=== PATIENT | female | born 1950 | race Caucasian/White ===

== ENCOUNTER 2021-07-01 04:27 | Day surgery (SDC) | payer OTHER ==
[2021-06-01 16:14] VITALS: BMI 27.8
[2021-07-01] MEDS ORDERED: MIDAZOLAM HCL 2 MG/2 ML SINGLE DOSE VIAL ONE (15:45)
[2021-07-01] MEDS ORDERED: ROCURONIUM BROMIDE 50 MG/5 ML SYRINGE ONE (15:45)
[2021-07-01] MEDS ORDERED: PROPOFOL 20 ML ONE (15:45)
[2021-07-01] MEDS ORDERED: fentaNYL CITRATE 250 MCG/5 ML VIAL ONE (15:45)
[2021-07-01] MEDS ORDERED: ACETAMINOPHEN 325 MG TABLET (FP) PO PRN (17:39)
[2021-07-01] MEDS ORDERED: oxyCODONE HCL 5 MG TABLET PO PRN ×2 (17:39→17:42)
[2021-07-01] MEDS ORDERED: IBUPROFEN 400 MG TABLET (FP) PO PRN (17:39)
[2021-07-01] MEDS ORDERED: ONDANSETRON 4 MG/2 ML VIAL IVPUSH PRN (17:42)
[2021-07-01] MEDS ORDERED: LACTATED RINGERS SOLUTION 1,000 ML IV SCH ×2 (17:45)
[2021-07-01] MEDS ORDERED: oxyCODONE HCL 5 MG TABLET ONE (18:42)
[2021-07-01] MEDS ORDERED: ACETAMINOPHEN INJECTION 100 ML IVPB ONE (18:42)
[2021-07-01] MEDS ORDERED: ACETAMINOPHEN 1000 MG/100 ML VIAL (NON FORMULARY) IVPB ONE (18:46)
[2021-07-01 19:57] VITALS: BP 148/87; PULSE 85; TEMP 97.7
== END 2021-07-01 19:55 | disposition home or self-care (01) ==
LOC: JASU-SURG 04:27
PROVIDERS: ATTEND Obstetrics & Gynecology
PROC: 0JQC0ZZ Repair Pelvic Region Subcutaneous Tissue and Fascia, Open Approach (ICD-10-PCS; principal; 2021-07-01 15:30)
DX: N81.6 Rectocele (principal); E11.9 Type 2 diabetes mellitus without complications; Z79.84 Long term (current) use of oral hypoglycemic drugs
CPT/HCPCS: 82962; 88302-TC; 94760; J0131